=== PATIENT | female | born 1950 | race Caucasian/White ===

== ENCOUNTER 2017-01-04 11:03 | Day surgery (SDC) | payer MEDICARE, OTHER ==
[~2017-01-04 11:03] MED LIST: ACETAMINOPHEN WITH CODEINE 1 EACH TABLET PO PRN; KETOROLAC TROMETHAMINE 15 MG/ML VIAL IV PRN; MORPHINE SULFATE 2 MG/ML DISP.SYRIN IV PRN; ONDANSETRON HCL/PF 2 MG/ML VIAL IV PRN; OXYBUTYNIN CHLORIDE 5 MG TABLET PO PRN; RINGERS SOLUTION,LACTATED 1,000 ML IV PRN; ceFAZolin SODIUM 2 GM in DEXTROSE 5 % IN WATER 50 ML IV PRN; oxyCODONE HCL/ACETAMINOPHEN 1 TAB TABLET PO PRN
--- OUTSIDE RECORDS SUMMARY | 2017-01-04 11:07 | XMS REPORT | Continuity of Care Document ---
:1950 Author Organization [facility] ([facility]) Address [address] [place] [address] Phone [phone] Care Team Providers Name Role Phone Radha Taylor Primary Care Provider [phone] Source Comments This disclosure is being made pursuant to the Care Everywhere program, applicable federal and state laws, and may not contain all informaitonavailable regarding this patient.[facility] ([facility]) Active Allergies and Adverse Reactions Allergen Noted Date Severity Reactions Comments Amoxicillin Urticaria (Hives),OTHER colitis Ampicillin Urticaria (Hives),OTHER colitis Current Medications Prescription Sig. Disp. Refills Start Date End Date Status acetaminophen (TYLENOL take 500 mg by Active EXTRA STRENGTH) 500 mg mouth as needed tablet for Pain. aspirin 81 mg EC tablet take 81 mg by Active mouth daily. HYPROMELLOSE/PF (GENTEAL, Instill 1 Drop Active PF, OPHTH) onto the eye as needed. ibuprofen 200 mg tablet Take 200 mg by Active mouth as needed. ASCORBATE CALCIUM (VITAMIN Take by mouth. Active C PO) CYANOCOBALAMIN, VITAMIN Take by mouth Active B-12, (VITAMIN B-12 PO) daily. albuterol 2.5 mg/3 mL 0 12/13/2015 Active inhalation solution VENTOLIN HFA 90 0 12/10/2015 Active mcg/Actuation inhaler fluticasone 50 0 12/13/2015 Active mcg/Actuation nasal spray vitamin E PO Active timolol (BETIMOL) 0.25 % Instill 1 Drop 15 mL 11 08/20/2016 Active ophthalmic solution onto the left eye daily. prednisoLONE acetate 1 % Instill 1 Drop 10 mL 11 09/17/2016 Active ophthalmic suspension onto the left eye 3 times daily. cholecalciferol (VITAMIN Take 1,000 Units Active D3) 1,000 unit capsule by mouth daily. 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 01/30/07;s/p DMAEK 06/05/12 Pseudophakia 07/13/2009 Subluxation of lens 01/14/2008 Personal history of other diseases of circulatory system 08/27/2007 Malignant neoplasm of breast (female), unspecified site 05/21/2006 Resolved Problems Problem Noted Date Resolved Date Corneal transplant 07/13/2009 10/03/2015 Most Recent Encounters Date Type Specialty Providers Description 12/07/2016 Office Visit Med Hematology and Sang Petty MD Chief Comp: Patient Oncology Reported Reason For Visit 11/13/2016 Office Visit Dermatology CrisChino patel MD Chief Comp: Patient Reported Reason For Visit 11/13/2016 Office Visit Ophthalmology - Sang Morales, Dx: Secondary Specialty MD corneal edema, left (Primary Dx) Social History Tobacco Use Types Packs/Day Years Used Date Never Smoker Smokeless Tobacco: Never Used Tobacco Cessation:Counseling Given: Yes Comments: Alcohol Use Drinks/Week oz/Week Comments No Last Filed Vital Signs Vital Sign Reading Time Taken Blood Pressure 115/70 06/06/2016 6:15 PM CDT Pulse 93 06/06/2016 10:45 AM CDT Temperature 36.4 C (97.5 F) 06/06/2016 5:00 PM CDT Respiratory Rate 16 06/06/2016 5:00 PM CDT Height 1.626 m (5' 4") 04/19/2016 11:11 AM CDT Weight 78.4 kg (172 lb 13.5 oz) 06/06/2016 10:45 AM CDT Body Mass Index 29.65 06/06/2016 10:45 AM CDT Oxygen Saturation 96% 06/06/2016 6:15 PM CDT Plan of Care Date Type Specialty Providers Description 01/15/2017 Appointment Ophthalmology - Sang Morales MD Chief Comp: Patient Specialty [address] [place] [address] Visit [phone] (Fax) 01/15/2017 Appointment Radiology Chief Comp: Patient Reported Reason For Visit 01/15/2017 Appointment Med Hematology and Jovanny, Sang Mcdonough MD Chief Comp: Patient Oncology [address] [place] [address] Visit [phone] (Fax) Health Maintenance Due Date Last Done Comments HCV Screening 1950 Hepatitis B Vaccine (1 of 3 1950 - Primary Series) Tdap Vaccine 1959 Td Vaccine 1966 Colonoscopy 1998 Zoster Vaccine 2008 Osteoporosis Screening (DXA 2013 Bone Density) Pneumococcal Vaccine (1 of 2 2013 - PCV13) Influenza Vaccine: Seasonal 05/07/2016 (#1) Lipid Disorder Screening 11/06/2016 11/06/2011 Mammogram 12/06/2016 12/07/2015, Additional history exists 11/25/2015, 11/19/2014 Results from Last 3 Months Not on file
[2017-01-04] MEDS ORDERED: NORMAL SALINE 1,000 ML IV ONE (11:53)
[2017-01-04 15:14] VITALS: BP 137/63
== END 2017-01-04 11:04 | disposition home or self-care (01) ==
LOC: AMB 11:03
PROVIDERS: ATTEND Urology
PROC: 0T778DZ Dilation of Left Ureter with Intraluminal Device, Via Natural or Artificial Opening Endoscopic (ICD-10-PCS; 2017-01-04)
PROC: 0TF48ZZ Fragmentation in Left Kidney Pelvis, Via Natural or Artificial Opening Endoscopic (ICD-10-PCS; principal; 2017-01-04 12:00)
DX: N20.0 Calculus of kidney (principal); R31.29 Other microscopic hematuria; Z68.29 Body mass index [BMI] 29.0-29.9, adult

== ENCOUNTER 2017-01-11 11:53 | Day surgery (SDC) | payer MEDICARE, OTHER ==
[~2017-01-11 11:53] MED LIST changes: -ACETAMINOPHEN WITH CODEINE 1 EACH TABLET PO PRN; +CIPROFLOXACIN HCL 500 MG TABLET PO PRN; -KETOROLAC TROMETHAMINE 15 MG/ML VIAL IV PRN; -MORPHINE SULFATE 2 MG/ML DISP.SYRIN IV PRN; -ONDANSETRON HCL/PF 2 MG/ML VIAL IV PRN; -OXYBUTYNIN CHLORIDE 5 MG TABLET PO PRN; -RINGERS SOLUTION,LACTATED 1,000 ML IV PRN; -ceFAZolin SODIUM 2 GM in DEXTROSE 5 % IN WATER 50 ML IV PRN; -oxyCODONE HCL/ACETAMINOPHEN 1 TAB TABLET PO PRN
--- OUTSIDE RECORDS SUMMARY | 2017-01-11 11:57 | XMS REPORT | Continuity of Care Document ---
:1950 Author Organization [facility] ([facility]) Address [address] [place] [address] Phone [phone] Care Team Providers Name Role Phone Radha Taylor Primary Care Provider [phone] Source Comments This disclosure is being made pursuant to the Care Everywhere program, applicable federal and state laws, and may not contain all informaitonavailable regarding this patient.[facility] ([facility]) Active Allergies and Adverse Reactions Allergen Noted [...] Specialty [address] [place] [address] Visit [phone] (Fax) 01/15/2017 Appointment Radiology Chief Comp: Patient Reported Reason For Visit 01/15/2017 Appointment Med Hematology and Jovanny, Sang Mcdonough MD Chief Comp: Patient Oncology [address] [place] [address] Visit [phone] (Fax) Health Maintenance Due Date Last Done Comments HCV Screening 1950 Hepatitis B Vaccine (1 of 3 1950 - Primary Series) Tdap Vaccine 1959 Td Vaccine 1966 Colonoscopy 1998 Zoster Vaccine 2008 Osteoporosis Screening (DXA 2013 Bone Density) Pneumococcal Vaccine (1 of 2 2013 - PCV13) Lipid Disorder Screening 11/06/2016 11/06/2011 Mammogram 12/06/2016 12/07/2015, Additional history exists 11/25/2015, 11/19/2014 Influenza Vaccine: Seasonal Completed Results from Last 3 Months Not on file
[2017-01-11] MEDS ORDERED: LIDOCAINE HCL 10 APPL CARTRIDGE TP ONE (12:35)
--- NOTE | 2017-01-11 12:53 | OR ---
Operative Report - Dictated Report Narrative: Procedure: cystoscopy and left stent removal Preoperative Dx: left kidney stones Post op Dx: Same Anesthesia: local Blood loss: none Indications: Hx of medullary sponge kidney. Treated 1 week ago with left URS, laser and stenting for lower pole stones Description of procedure: brought to the OR and positioned in frog leg. Timeout performed. Prepped and draped. Lidocaine jelly inserted. Flexible scoped passed easily. Stent seen grasped and removed without difficulty. Follow up in 6 months with a KUB
[2017-01-11 13:30] VITALS: BP 132/71
== END 2017-01-11 11:54 | disposition home or self-care (01) ==
LOC: AMB 11:53
PROVIDERS: ATTEND Urology
PROC: 0TP98DZ Removal of Intraluminal Device from Ureter, Via Natural or Artificial Opening Endoscopic (ICD-10-PCS; principal; 2017-01-11 13:00)
DX: N20.0 Calculus of kidney (principal); Z68.29 Body mass index [BMI] 29.0-29.9, adult

== ENCOUNTER 2017-01-22 11:49 | Inpatient (IN) | payer MEDICARE, OTHER ==
--- OUTSIDE RECORDS SUMMARY | 2017-01-22 11:54 | XMS REPORT | Continuity of Care Document ---
:1950 Author Organization [facility] ([facility]) Address [address] [place] [address] Phone [phone] Care Team Providers Name Role Phone Radha Taylor Primary Care Provider [phone] Source Comments This disclosure is being made pursuant to the Care Everywhere program, applicable federal and state laws, and may not contain all informaitonavailable regarding this patient.[facility] ([facility]) Active Allergies and Adverse Reactions Allergen [...] Recent Encounters Date Type Specialty Providers Description 01/15/2017 Office Visit Med Hematology Sang Bullock, Dx: Malignant Oncology neoplasm of breast (female), unspecified site (Primary Dx) 01/15/2017 [facility] Radiology Srinivas Haynes MD Dx: Encounter for Encounter screening mammogram for malignant neoplasm of breast 01/15/2017 Office Visit Ophthalmology - Sang Morales, Dx: Secondary Specialty corneal edema, left (Primary Dx) 12/07/2016 Office Visit Med Hematology and Sang Petty, Chief Comp: Patient Oncology MD Reported Reason For Visit 11/13/2016 Office Visit Dermatology Chino Lynch MD Chief Comp: Patient Reported Reason For Visit 11/13/2016 Office Visit Ophthalmology - Sang Morales Dx: Secondary Specialty corneal edema, left (Primary Dx) Social History Tobacco Use Types Packs/Day Years Used Date Never Smoker Smokeless Tobacco: Never Used Tobacco Cessation:Counseling Given: Yes Comments: Alcohol Use Drinks/Week oz/Week Comments No Last Filed Vital Signs Vital Sign Reading Time Taken Blood Pressure 134/67 01/15/2017 2:27 PM CDT Pulse 68 01/15/2017 2:27 PM CDT Temperature 36.2 C (97.2 F) 01/15/2017 2:27 PM CDT Respiratory Rate 18 01/15/2017 2:27 PM CDT Height 1.626 m (5' 4.02") 01/15/2017 2:27 PM CDT Weight 80.5 kg (177 lb 7.5 oz) 01/15/2017 2:27 PM CDT Body Mass Index 30.45 01/15/2017 2:27 PM CDT Oxygen Saturation 98% 01/15/2017 2:27 PM CDT Plan of Care Date Type Specialty Providers Description 01/21/2018 Appointment Ophthalmology - Sang Morales MD Chief Comp: Patient Specialty [address] [place] [address] Visit [phone] (Fax) Health Maintenance Due Date Last Done Comments HCV Screening 1950 Hepatitis B Vaccine (1 of 3 1950 - Primary Series) Tdap Vaccine 1959 Td Vaccine 1966 Colonoscopy 1998 Zoster Vaccine 2008 Osteoporosis Screening (DXA 2013 Bone Density) Pneumococcal Vaccine (1 of 2 2013 - PCV13) Lipid Disorder Screening 11/06/2016 11/06/2011 Influenza Vaccine: Seasonal 05/07/2017 (Season Ended) Mammogram 01/15/2018 01/15/2017, Additional history exists 12/07/2015, 11/25/2015 Results from Last 3 Months BI DIGITAL SCREENING MAMMOGRAM BILATERAL& JASMYNE (01/15/2017 1:50 PM) Impressions Impression: Benign findings in the left breast. Recommendations:Continue annual screening mammogram. These results were provided to the patient by letter. Final Assessment: Benign finding. BIRADS category 2. Narrative Procedure: BI DIGITAL SCREENING MAMMOGRAM BILATERAL & JASMYNE Technique:Digital mammogram with Tomosynthesis, bilateral CC and MLO views. Clinical Indication:Breast cancer screening Personal History of breast cancer: Yes, left breast status post lumpectomy and radiation therapy Personal Delivery History: Prior to age 28 Personal History of biopsy proven benign breast disease: No Personal history of reduction mammoplasty: No Family History of breast cancer: No Date of Comparison Study: 11/25/2015, 11/19/2014, 11/17/2013, 11/11/2012, 11/06/2011, 10/25/2010, 10/11/2009, 08/31/2008, 08/27/2007 Parenchymal Radiodensity: The breasts are heterogeneously dense, which may obscure small masses. Findings: Stable postsurgical change in the left upper outer breast. Otherwise, there is no suspicious mass, microcalcifications or architectural distortion in the either breast.. Comparison to prior exams demonstrates no significant interval change. Procedure Note Inderjit, Incoming Imaging Results - Tue Jan 15, 2017 3:07 PM CDT Procedure: BI DIGITAL SCREENING MAMMOGRAM BILATERAL & JASMYNE Technique: Digital mammogram with Tomosynthesis, bilateral CC and MLO views. Clinical Indication: Breast cancer screening Personal History of breast cancer: Yes, left breast status post lumpectomy and radiation therapy Personal Delivery History: Prior to age 28 Personal History of biopsy proven benign breast disease: No Personal history of reduction mammoplasty: No Family History of breast cancer: No Date of Comparison Study: 11/25/2015, 11/19/2014, 11/17/2013, 11/11/2012, 11/06/2011, 10/25/2010, 10/11/2009, 08/31/2008, 08/27/2007 Parenchymal Radiodensity: The breasts are heterogeneously dense, which may obscure small masses. Findings: Stable postsurgical change in the left upper outer breast. Otherwise, there is no suspicious mass, microcalcifications or architectural distortion in the either breast. . Comparison to prior exams demonstrates no significant interval change. IMPRESSION Impression: Benign findings in the left breast. Recommendations: Continue annual screening mammogram. These results were provided to the patient by letter. Final Assessment: Benign finding. BIRADS category 2.
--- OUTSIDE RECORDS SUMMARY | 2017-01-22 15:40 | XMS REPORT | Continuity of Care Document ---
:1950 Author Organization [facility] ([facility]) Address [address] [place] [address] Phone [phone] Care Team Providers Name Role Phone Radha Taylor Primary Care Provider [phone] Source Comments This disclosure is being made pursuant to the Care Everywhere program, applicable federal and state laws, and may not contain all informaitonavailable regarding this patient.[facility] ([facility]) Active Allergies and Adverse Reactions Allergen Noted [...] breast (female), unspecified site (Primary Dx) 01/15/2017 [facility] Radiology Srinivas Haynes MD Dx: Encounter for [...] Specialty Providers Description 01/21/2018 Appointment Ophthalmology - aSng Morales MD Chief Comp: Patient Specialty [address] [place] [address] Visit [phone] (Fax) Health Maintenance Due Date Last Done [...]
[2017-01-22] MEDS ORDERED: NORMAL SALINE 1,000 ML IV ONE (15:45)
[2017-01-22] MEDS ORDERED: ALBUTEROL SULFATE/IPRATROPIUM 3 ML NEBU IH ONE (18:05)
[2017-01-22] MEDS: NORMAL SALINE 1,000 ML IV PRN ×2 (18:08→23:33)
[2017-01-22 18:28] LABS: BNP * 621 pg/mL (5-325); Troponin I Less than 0.017 ng/ml (0.00-0.10)
[2017-01-22] MEDS ORDERED: ACETAMINOPHEN 325 MG TABLET PO ONE (18:40)
[2017-01-22] MEDS ORDERED: ACETAMINOPHEN 325 MG TABLET ONE (18:41)
--- NOTE | 2017-01-22 19:11 | HP ---
Chief Complaint - Chief Complaint Date of Service: 01/22/17 Time of Service: 17:15 Chief Complaint: UTI, shortness of breath, back pain History of Present Illness: Mary is a 66 year old female with a PMH of anemia, breast ca (left breast s/ p lumpectomy), ulcerative colitis, and history of PE in [address] Rey's office today with 1-2 day history of dyspnea, low grade fever, nausea and poor oral intake. Chest xray done outpatient was WNL. CT of the chest done outpatient was negative for PE. labs done outpatient showed wbc 11.4 , bmp wnl, ast/alt wnl. neutrophils elevated 80.6. pt was directly admitted to the hospital for UTI, fever, dyspnea and cough. Patient also has a recent history of kidney stone lithotripsy with stent placement and removal on 01/04/[address] belcher was notified of pt's admission and agreed to admission. - Patient's Past Medical History Patient History - Medical: Anemia, Kidney stone Patient History - Cardiac/Respiratory: No pertinent hx Patient History - Cancer: Breast Patient History - Surgical Procedures: Cataracts, Cholecystectomy, Colonoscopy, Hysterectomy, Other Patient History - Other: None LMP (females 10-50): Menopausal - Family History Father Family History - Medical: , Diabetes Type 2 Family History - Cardiac/Respiratory: No pertinent hx Family History - Cancer: No pertinent family hx - Social History Living Situations: spouse Abuse History: No History of abuse Psych History: No pertinent hx Smoking Status: Never smoker Have you smoked in the past 12 months: Yes Do you dip or chew tobacco: Yes Patient requests Smoking Cessation Consult: No Initiate information on Smoking Cessation: No Alcohol Use: none Drug Use: none - Immunizations Immunizations Up to Date: Yes Hx Pneumococcal Vaccination: No History of Influenza Vaccine: Yes Review Of Systems (GEN) - Review of Systems Generalized/Overall Review: Present: Weakness, Fever, Malaise, Fatigue EENTM: Present: No Symptoms Reported Respiratory: Present: Cough, Shortness of Breath. Absent: Wheezing Cardiac: Present: No Symptoms Reported Abdominal: Present: Nausea, Other - abdominal bloating / guarding. Absent: Vomiting, Hematemesis, Constipation, Diarrhea, Melena, Bright blood from rectum Genitourinary: Present: Frequency Musculoskeletal: Present: Back Pain Neurological: Present: Weakness Skin: Present: No Symptoms Reported Endocrine: Present: No Symptoms Reported Misc: All systems neg except as marked Immunizations: IMMUNIZATION HX Immunizations Up to Date Yes History of Influenza Vaccine Yes Hx Pneumococcal Vaccination No Allergies/Adverse Reactions: Allergies Allergy/AdvReac Type Severity Reaction Status Date / Time ampicillin Allergy Severe diarrhea, Verified 01/22/17 17:16 rash, hives amoxicillin Allergy Unknown diarrhea, Verified 01/22/17 17:16 rash, hives Home Medications: HOME MEDICATIONS Timolol Maleate [Timoptic Generic 0.25% Ophthalmic Solution] 1 drop OP DAILY [Last Taken Unknown] prednisoLONE ACETATE [Pred Forte 1%] 1 drop LEFTEYE BID 01/03/17 [Last Taken Unknown] Aspirin [Aspirin EC] 81 mg PO DAILY 01/04/17 [Last Taken Unknown] HYDROcodone/ACETAMINOPHEN [Chisholm 5-325] 1 - 2 tab PO Q4H PRN #20 tab 01/04/17 [ Last Taken Unknown] Ascorbic Acid [Vitamin C] 500 mg PO DAILY 01/22/17 [Last Taken Unknown] Cholecalciferol (Vitamin D3) [Vitamin D] 2,000 unit PO DAILY 01/22/17 [Last Taken Unknown] Cyanocobalamin (Vitamin B-12) [Vitamin B-12] 500 mcg PO DAILY 01/22/17 [Last Taken Unknown] Ibuprofen [Motrin] 200 - 800 mg PO Q6H PRN 01/22/17 [Last Taken Unknown] Vitamin E 200 unit PO DAILY 01/22/17 [Last Taken Unknown] Exam - Exam Vital Signs: Vital Signs - Last Taken Temp 37.4 C 01/22/17 16:59 Pulse 134 H 01/22/17 16:59 Resp 20 01/22/17 16:59 BP 135/69 01/22/17 18:16 Pulse Ox 99 01/22/17 16:59 Constitutional: Present: Alert, Oriented x3, Cooperative, Moderate distress, Severe distress, Looks Older than stated age ENT Exam: Present: hearing grossly normal Eye Exam: bilateral eye: normal inspection, PERRL Neck: Present: full range of motion, supple Back Exam: Present: normal inspection, no vertebral tenderness Breasts: Present: Exam deferred Respiratory: Present: chest non-tender, respiratory distress, accessory muscle use, crackles, rhonchi Cardiovascular/Chest: Present: normal peripheral pulses, regular rate, rhythm, no chest tenderness, no edema, tachycardia Peripheral Pulses: carotid (R): 2+, carotid (L): 2+, dorsalis-pedis (R): 2+, dorsalis-pedis (L): 2+, radial (R): 2+, radial (L): 2+ Abdomen: Present: Normal bowel sounds, guarding, rigidity, distended - mild /Rectal: Present: Exam deferred Extremity: Present: normal range of motion, non-tender, normal inspection, no pedal edema, no calf tenderness Skin Exam: Present: normal color, warm/dry, no cyanosis Neurologic: Present: alert, oriented x 3 Diagnostic Studies: Abnormal Lab Results 01/22/17 01/22/17 Range/Units 18:06 18:06 pCO2 27.1 L (32.0-45.0) mmHg pO2 72.7 L (83.0-108.0) mmHg HCO3 20.8 L (21.0-28.0) mmol/L ABG pH 7.50 H (7.35-7.45) B-Natriuretic Peptide 621 H (5-325) pg/mL Laboratory Results pCO2 27.1 mmHg (32.0-45.0) L 01/22/17 18:06 pO2 72.7 mmHg (83.0-108.0) L 01/22/17 18:06 HCO3 20.8 mmol/L (21.0-28.0) L 01/22/17 18:06 Total CO2 21.6 mmol/L (19.0-24.0) 01/22/17 18:06 Base Excess -1.2 mmol/L (-2.0-3.0) 01/22/17 18:06 ABG pH 7.50 (7.35-7.45) H 01/22/17 18:06 ABG O2 Sat (Measured) 96.1 % (94.0-98.0) 01/22/17 18:06 Lactic Acid, Venous 1.9 mmol/L (0.4-1.9) 01/22/17 16:15 Troponin I Less than 0.017 ng/ml (0.00-0.10) 01/22/17 18:06 B-Natriuretic Peptide 621 pg/mL (5-325) H 01/22/17 18:06 Assessment/Plan - Narrative Narrative: Plan: dehydration - patient to be given 1 liter NS bolus then start IV fluids at 250 ml per hour. - strict I&O and daily weights. - encourage PO intake when able. cough - unclear etiology. chest xray done today wnl. ? chronic in nature vs viral respiratory infection vs post nasal drip vs other etiology. - watch O2 sats closely dyspnea - unclear etiology. chest xray wnl. ct of the chest neg for pe. - check labs for sepsis - ? anxiety playing a factor history of PE - CT done today neg for PE, monitor. history of kidney stone - recent urology procedure. - Dr. Belcher (urology) aware of admission. - check ct for stone protocol. if unable to do tonight will need US of KUB. back pain - likely from UTI and/or kidney stone - awaiting CT stone protocol and/or US of KUB - ? constipation adding to back pain as patient has been without BM for a few days. abdominal guarding - ? cause. pt says she feels more "bloated" and "distended" than usual. - add US of abdomen if unable to do CT of abdomen tonight. - ? constipation adding a variable to this Code Status: Full Code VTE: Hold for now until US back, SCDs on while in bed for now. GI proph: will start on protonix. - Assessment/Plan (1) Dehydration Problem: Acute (2) Cough Problem: Acute (3) Dyspnea Problem: Acute Qualifiers: Dyspnea type: shortness of breath Qualified Code(s): R06.02 - Shortness of breath (4) History of pulmonary edema Problem: Chronic (5) History of kidney stones Problem: Chronic (6) Back pain Problem: Acute Qualifiers: Back pain location: back pain in unspecified location Chronicity: acute Back pain laterality: unspecified Qualified Code(s): M54.9 - Dorsalgia, unspecified (7) Respiratory distress Problem: Acute (8) Urinary tract infection Problem: Acute Qualifiers: Urinary tract infection type: site unspecified Hematuria presence: with hematuria Qualified Code(s): N39.0 - Urinary tract infection, site not specified; R31.9 - Hematuria, unspecified (9) Abdominal guarding Problem: Acute
[2017-01-22 19:16] LABS: Amylase * 33 U/L (25-115); Lipase 129 U/L (73-393)
[2017-01-22] MEDS: prednisoLONE ACETATE 50 DROP BTL LEFTEYE SCH (20:22)
[2017-01-22] MEDS: PANTOPRAZOLE SODIUM 40 MG in NORMAL SALINE 100 ML IV SCH (20:22)
[2017-01-22] MEDS ORDERED: LEVALBUTEROL HCL 1.25 MG/3 ML AMPUL IH SCH (20:45)
[2017-01-22] MEDS ORDERED: LORazepam 0.5 MG TABLET PO PRN (21:51)
[2017-01-22] MEDS: ONDANSETRON HCL/PF 2 MG/ML VIAL IV PRN (22:20)
[2017-01-22] MEDS: LEVOFLOXACIN/D5W 750 MG/150 ML BAG IV SCH (22:22)
[2017-01-22 22:35] LABS: Hematocrit 33.5 % (37.0-47.0); Hemoglobin 11.5 gm/dL (12.5-16.0); Mean Cell Volume 92.8 fl (78-100); Mean Corpuscular Hemoglobin 31.9 pg (27-31); Mean Corpuscular Hgb Conc 34.3 g/dl (32-36); Mean Platelet Volume 8.7 fl (6.0-9.5); Neutrophil # 9.7 K/mm3 (1.3-6.0); Neutrophil % 85.5 % (42-75.0); Platelet Count 184 K/mm3 (150-450); Red Blood Count 3.61 M/mm3 (4.2-5.4); Red Cell Distribution Width 12.9 % (11.5-14.0); White Blood Count 11.4 K/mm3 (4.0-10.5)
[2017-01-22 22:44] LABS: Anion Gap 14.9 mmol/L (6.8-13.8); BUN/Creatinine Ratio 10.1 (9.0-21.6); Calcium * 8.2 mg/dL (7.9-10.9); Carbon Dioxide 24.4 mmol/L (24-32.6); Estimated Creat Clear 52.2; Potassium 3.3 mmol/L (3.4-4.6)
[2017-01-22] MEDS: ACETAMINOPHEN 325 MG TABLET PO PRN (23:06)
[2017-01-23] MEDS: NORMAL SALINE 1,000 ML IV PRN ×5 (04:19→22:55)
[2017-01-23 05:51] LABS: Hematocrit 33.8 % (37.0-47.0); Hemoglobin 11.1 gm/dL (12.5-16.0); Mean Cell Volume 95.5 fl (78-100); Mean Corpuscular Hemoglobin 31.4 pg (27-31); Mean Corpuscular Hgb Conc 32.8 g/dl (32-36); Platelet Count 192 K/mm3 (150-450); Red Blood Count 3.54 M/mm3 (4.2-5.4); White Blood Count 15.7 K/mm3 (4.0-10.5)
[2017-01-23] MEDS: ACETAMINOPHEN 325 MG TABLET PO PRN ×2 (05:54→20:32)
[2017-01-23] MEDS: ONDANSETRON HCL/PF 2 MG/ML VIAL IV PRN (05:54)
[2017-01-23 06:05] LABS: Total Cells Counted 100
[2017-01-23 06:08] LABS: Albumin * 2.8 gm/dl (3.4-5.0); Anion Gap 13.2 mmol/L (6.8-13.8); BUN/Creatinine Ratio 9.7 (9.0-21.6); Bilirubin, Total 0.5 mg/dL (0.0-1.1); Ca. Corrected For Albumin 8.7 mg/dL (8.4-10.2); Calcium * 8.1 mg/dL (7.9-10.9); Carbon Dioxide 25.3 mmol/L (24-32.6); Potassium 3.5 mmol/L (3.4-4.6); Total Protein 6.7 gm/dL (6.2-8.2)
[2017-01-23 06:23] LABS: Band 15 % (0-2.0); Lymphocyte 9 % (20-51); Monocyte 3 % (0-9); Neutrophil 73 % (42-75); Neutrophil # 11.5 K/mm3 (1.3-6.0); Platelet Estimate Normal (NORMAL); RBC Morphology Normal (NORMAL)
[2017-01-23] MEDS ORDERED: CYANOCOBALAMIN 500 MCG PO SCH (09:00)
[2017-01-23] MEDS ORDERED: CHOLECALCIFEROL 2000 UNIT PO SCH (09:00)
[2017-01-23] MEDS ORDERED: VITAMIN E 200 UNIT PO SCH (09:00)
[2017-01-23] MEDS: ASCORBIC ACID 500 MG TABLET PO SCH (09:53)
[2017-01-23] MEDS: prednisoLONE ACETATE 50 DROP BTL LEFTEYE SCH ×2 (09:53→20:34)
[2017-01-23] MEDS: TIMOLOL MALEATE 50 DROP BTL OP SCH (10:09)
[2017-01-23] MEDS: PANTOPRAZOLE SODIUM 40 MG in NORMAL SALINE 100 ML IV SCH (20:35)
[2017-01-23] MEDS ORDERED: VANCOMYCIN HCL IV SCH ×2 (22:00)
[2017-01-23] MEDS ORDERED: DEXTROSE 5% IV SCH ×2 (22:00)
[2017-01-23] MEDS ORDERED: WATER IV SCH ×2 (22:00)
[2017-01-23] MEDS: LEVOFLOXACIN/D5W 750 MG/150 ML BAG IV SCH (22:54)
[2017-01-24] MEDS: VANCOMYCIN HCL 1 GM in NORMAL SALINE 250 ML IV SCH ×3 (01:23→23:38)
[2017-01-24] MEDS: NORMAL SALINE 1,000 ML IV PRN ×2 (06:56→15:10)
[2017-01-24] MEDS: prednisoLONE ACETATE 50 DROP BTL LEFTEYE SCH ×2 (08:22→20:47)
[2017-01-24] MEDS: ASCORBIC ACID 500 MG TABLET PO SCH (08:23)
[2017-01-24] MEDS: TIMOLOL MALEATE 50 DROP BTL OP SCH (08:37)
[2017-01-24 09:09] LABS: Hematocrit 28.3 % (37.0-47.0); Hemoglobin 9.4 gm/dL (12.5-16.0); Mean Cell Volume 95.6 fl (78-100); Mean Corpuscular Hemoglobin 31.8 pg (27-31); Mean Corpuscular Hgb Conc 33.2 g/dl (32-36); Mean Platelet Volume 8.7 fl (6.0-9.5); Platelet Count 149 K/mm3 (150-450); Red Blood Count 2.96 M/mm3 (4.2-5.4); Red Cell Distribution Width 13.1 % (11.5-14.0); White Blood Count 11.4 K/mm3 (4.0-10.5)
[2017-01-24 09:20] LABS: Total Cells Counted 100
[2017-01-24] MEDS: ENOXAPARIN SODIUM 40 MG/0.4 ML SYRG SC SCH (09:21)
[2017-01-24 09:35] LABS: Eosinophil 1 % (0-3); Lymphocyte 7 % (20-51); Monocyte 4 % (0-9); Neutrophil 88 % (42-75); Platelet Estimate Normal (NORMAL); RBC Morphology Normal (NORMAL)
[2017-01-24] MEDS ORDERED: POTASSIUM CHLORIDE 20 MEQ TABLET.SA PO ONE (12:00)
[2017-01-24] MEDS: SACCHAROMYCES BOULARDII 250 MG CAPSULE PO SCH ×2 (12:16→20:45)
[2017-01-24 15:19] LABS: Iron 14 mcg/dL (35-120); Transferrin Sat. (% Sat.) 8 % (15-55)
[2017-01-24] MEDS ORDERED: diphenhydrAMINE HCL 50 MG/ML VIAL IV ONE (16:18)
[2017-01-24] MEDS ORDERED: IRON SUCROSE COMPLEX 500 MG in NORMAL SALINE 250 ML IV ONE (16:30)
--- NOTE | 2017-01-24 17:38 | PN ---
Subjective - Date and Time Seen Date: 01/24/17 Time: 17:31 Subjective Narrative: Patient feels better; continues to have occasional problems "catching her breath '. This leaves her very concerned. She and her want this to be worked up. No difficulty in swallowing, hoarseness etc. This also occurred when she had her PE. Back pain improving. Discussed CT findings with patient Objective - Review of Systems Generalized/Overall Review: Denies: Weakness, Chills Respiratory: Denies: Cough Cardiac: Denies: Chest Pain, Edema Abdominal: Denies: Nausea, Vomiting Musculoskeletal Complaints: Reports: Back Pain - Vitals Vitals: Vital Signs Temp 37.5 C 01/24/17 14:20 Pulse 107 H 01/24/17 14:20 Resp 18 01/24/17 14:20 BP 142/79 01/24/17 14:20 Pulse Ox 98 01/24/17 14:20 - Abnormal Lab Findings Abnormal Lab Findings: Laboratory Tests 01/24/17 09:03 WBC 11.4 H D Hgb 9.4 L Hct 28.3 L Plt Count 149 L 01/24/17 09:03 Iron 14 L TIBC 178 L Transferrin % Sat 8 L Folate 18.4 - Exam Constitutional: Present: Middle aged - looks her age, in no acute distress. ENT Exam: Present: hearing grossly normal, moist mucous membranes Respiratory: Present: lungs clear, no respiratory distress, no accessory muscle use Cardiovascular/Chest: Present: regular rate, rhythm, tachycardia - with HR 100- 110/min Abdomen: Present: Normal bowel sounds, soft, nontender, nondistended Extremity: Present: normal range of motion, normal inspection. Absent: no pedal edema Neurologic: Present: alert, oriented x 3. Absent: depressed affect Assessment/Plan Plan Narrative: 1. Bacteremia: 2 out of 2 blood cultures positive for gram positive cocci in pairs. Patient currently on ceftriaxone 2 g IV daily day #3, levofloxacin 750 mg IV daily day # 3 and vancomycin 1 g IV BID day #2. D/C ceftriaxone. CT abdomen/pelvis on 01/23/2017: Left-sided perinephric stranding and focal ill- defined masslike finding on the lower pole of the LT kidney. Differential diagnosis: Focal pyelonephritis versus infiltrative renal mass. 2. Medullary sponge kidney: S/P stent placement due to kidney stones on 01/04/17. 3. Iron deficiency anemia: T sat ratio 8%. CT also showing questionable bowel wall thickening of the sigmoid colon. May require further workup. Venofer 500 mg IV daily given after premedicating with diphenhydramine 25 mg IV. 4. Difficulty in catching her breath/swallowing: Obtain MRI for questionable stroke. 5. CHRONIC MEDICAL CONDITIONS. i. Breast CA s/p lumpectomy. ii. ulcerative colitis.
[2017-01-24] MEDS: PANTOPRAZOLE SODIUM 40 MG in NORMAL SALINE 100 ML IV SCH (19:37)
[2017-01-24] MEDS: LEVOFLOXACIN/D5W 750 MG/150 ML BAG IV SCH (22:11)
[2017-01-24] MEDS: ACETAMINOPHEN 325 MG TABLET PO PRN (22:31)
[2017-01-25] MEDS: NORMAL SALINE 1,000 ML IV PRN (01:47)
[2017-01-25 05:37] LABS: Hematocrit 28.9 % (37.0-47.0); Hemoglobin 9.5 gm/dL (12.5-16.0); Mean Cell Volume 95.1 fl (78-100); Mean Corpuscular Hemoglobin 31.3 pg (27-31); Mean Corpuscular Hgb Conc 32.9 g/dl (32-36); Mean Platelet Volume 9.6 fl (6.0-9.5); Neutrophil # 6.6 K/mm3 (1.3-6.0); Neutrophil % 75.7 % (42-75.0); Platelet Count 181 K/mm3 (150-450); Red Blood Count 3.04 M/mm3 (4.2-5.4); Red Cell Distribution Width 13.1 % (11.5-14.0); White Blood Count 8.7 K/mm3 (4.0-10.5)
[2017-01-25 05:46] LABS: Anion Gap 13.7 mmol/L (6.8-13.8); BUN/Creatinine Ratio 4.4 (9.0-21.6); Calcium * 8.4 mg/dL (7.9-10.9); Carbon Dioxide 26.1 mmol/L (24-32.6); Estimated Creat Clear 68.4; Potassium 2.8 mmol/L (3.4-4.6)
[2017-01-25] MEDS ORDERED: POTASSIUM CHLORIDE 20 MEQ TABLET.SA PO ONE ×2 (06:34→16:00)
[2017-01-25] MEDS ORDERED: 0.5 NORMAL SALINE 1,000 ML IV PRN (06:38)
[2017-01-25] MEDS ORDERED: POTASSIUM CHLORIDE 20 MEQ TABLET.SA ONE (08:28)
[2017-01-25] MEDS: POTASSIUM CHLORIDE 100 ML IV SCH ×4 (08:29→09:45)
[2017-01-25] MEDS ORDERED: POTASSIUM CHLORIDE 20 MEQ in 0.5 NORMAL SALINE 1,000 ML IV SCH (08:45)
[2017-01-25] MEDS: ASCORBIC ACID 500 MG TABLET PO SCH (09:45)
[2017-01-25] MEDS: SACCHAROMYCES BOULARDII 250 MG CAPSULE PO SCH ×2 (09:45→22:06)
[2017-01-25] MEDS: ENOXAPARIN SODIUM 40 MG/0.4 ML SYRG SC SCH (09:46)
[2017-01-25] MEDS: prednisoLONE ACETATE 50 DROP BTL LEFTEYE SCH ×2 (09:46→22:07)
[2017-01-25] MEDS: TIMOLOL MALEATE 50 DROP BTL OP SCH (09:46)
[2017-01-25] MEDS ORDERED: VANCOMYCIN HCL LEVEL XX ONE (10:30)
[2017-01-25] MEDS: VANCOMYCIN HCL 1 GM in NORMAL SALINE 250 ML IV SCH (12:13)
[2017-01-25] MEDS: VANCOMYCIN HCL 1.5 GM in NORMAL SALINE 500 ML IV SCH (12:14)
[2017-01-25] MEDS ORDERED: POTASSIUM CHLORIDE 20 MEQ TABLET.SA PO SCH (17:00)
--- NOTE | 2017-01-25 17:06 | PN ---
Subjective - Date and Time Seen Date: 01/25/17 Time: 16:49 Subjective Narrative: Patient feels better, denies back pain, fever,chills. Off Telemetry. ambulating well. Objective - Review of Systems Respiratory: Denies: Cough, Shortness of Breath Cardiac: Denies: Chest Pain, Edema Abdominal: Denies: Nausea, Vomiting - Vitals Vitals: Vital Signs Temp 37.0 C 01/25/17 14:14 Pulse 107 H 01/25/17 14:14 Resp 18 01/25/17 14:14 BP 140/84 01/25/17 14:14 Pulse Ox 97 01/25/17 14:14 - Abnormal Lab Findings Abnormal Lab Findings: Lab Results - Exam Constitutional: Present: Elderly, Overweight - in NAD ENT Exam: Present: hearing grossly normal, moist mucous membranes Respiratory: Present: lungs clear, normal breath sounds. Absent: respiratory distress Cardiovascular/Chest: Present: regular rate, rhythm, tachycardia Abdomen: Present: Normal bowel sounds, soft, nontender, nondistended Extremity: Present: normal range of motion, non-tender. Absent: no pedal edema Skin Exam: Present: normal color, warm/dry Eye contact: Present: cooperative, good eye contact Assessment/Plan Plan Narrative: 1. Bacteremia: 2 out of 2 blood cultures positive for gram positive cocci in pairs identified today as Staph. aureus. C/S pending. Patient currently levofloxacin 750 mg IV daily day #4 and vancomycin 1 g IV BID day #3. ceftriaxone D/Rei on 01/24/17. CT abdomen/pelvis on 01/23/2017: Left-sided perinephric stranding and focal ill- defined masslike finding on the lower pole of the LT kidney. Differential diagnosis: Focal pyelonephritis versus infiltrative renal mass. 2. Iron deficiency anemia: T sat ratio 8%. CT also showing questionable bowel wall thickening of the sigmoid colon. May require further workup. Venofer 500 mg IV given on 01/24/17 given after premedicating with diphenhydramine 25 mg IV which she tolerated w/o problems. 3. Medullary sponge kidney: S/P stent placement due to kidney stones on 01/04/17. 4. Difficulty in catching her breath/swallowing: MRI for questionable stroke done on negative for pathology. 5. CHRONIC MEDICAL CONDITIONS. i. Breast CA s/p lumpectomy. ii. ulcerative colitis. Discussed with Dr. Alcala regarding RX and CT findings - continue antibiotics for 2 weeks and follow up.
[2017-01-25] MEDS: DEXTROSE 5%-0.5 NORMAL SALINE 1,000 ML IV PRN ×2 (17:14→17:24)
[2017-01-25] MEDS: PANTOPRAZOLE SODIUM 40 MG in NORMAL SALINE 100 ML IV SCH (20:20)
[2017-01-25] MEDS: LEVOFLOXACIN/D5W 750 MG/150 ML BAG IV SCH (22:05)
[2017-01-26] MEDS: VANCOMYCIN HCL 1.5 GM in NORMAL SALINE 500 ML IV SCH ×2 (00:14→11:19)
[2017-01-26 05:28] LABS: Hematocrit 30.3 % (37.0-47.0); Hemoglobin 10.1 gm/dL (12.5-16.0); Mean Cell Volume 93.8 fl (78-100); Mean Corpuscular Hemoglobin 31.3 pg (27-31); Mean Corpuscular Hgb Conc 33.3 g/dl (32-36); Mean Platelet Volume 9.4 fl (6.0-9.5); Neutrophil # 5.1 K/mm3 (1.3-6.0); Neutrophil % 70.1 % (42-75.0); Platelet Count 213 K/mm3 (150-450); Red Blood Count 3.23 M/mm3 (4.2-5.4); White Blood Count 7.2 K/mm3 (4.0-10.5)
[2017-01-26 05:35] LABS: Anion Gap 13.4 mmol/L (6.8-13.8); BUN/Creatinine Ratio 6.2 (9.0-21.6); Carbon Dioxide 26.1 mmol/L (24-32.6); Estimated Creat Clear 71.5; Potassium 3.5 mmol/L (3.4-4.6)
[2017-01-26] MEDS: ASCORBIC ACID 500 MG TABLET PO SCH (08:09)
[2017-01-26] MEDS: SACCHAROMYCES BOULARDII 250 MG CAPSULE PO SCH ×2 (08:09→20:27)
[2017-01-26] MEDS: prednisoLONE ACETATE 50 DROP BTL LEFTEYE SCH ×2 (08:10→20:27)
[2017-01-26] MEDS: TIMOLOL MALEATE 50 DROP BTL OP SCH (08:10)
[2017-01-26] MEDS: ENOXAPARIN SODIUM 40 MG/0.4 ML SYRG SC SCH (08:20)
[2017-01-26] MEDS: DEXTROSE 5%-0.5 NORMAL SALINE 1,000 ML IV PRN (09:15)
--- NOTE | 2017-01-26 18:00 | PN ---
Subjective - Date and Time Seen Date: 01/26/17 Time: 10:48 Subjective Narrative: feeling better. having loose stools. no cp, no dyspnea. no fevers. no chills/ body aches. ambulating well. no back pain. eating and drinking well. only one episode of difficulty with speech yesterday other speech is back to baseline. Objective Objective Narrative: please note: pt had renal stent placed 01/04/17 and removed 01/11/17 - these are updated dates. - Review of Systems Generalized/Overall Review: Reports: Fatigue EENTM: Reports: No Symptoms Reported Respiratory: Reports: No Symptoms Reported Cardiac: Reports: No Symptoms Reported Abdominal: Reports: Diarrhea. Denies: Nausea, Vomiting, Abdominal Pain Genitourinary Symptoms: Reports: No Symptoms Reported Musculoskeletal Complaints: Reports: No Symptoms Reported Neurological: Reports: No Symptoms Reported Skin: Reports: No Symptoms Reported Endocrine: Reports: No Symptoms Reported Misc: All systems neg except as marked - Vitals Vitals: Last Vital Signs Temp 37.1 C 01/26/17 14:58 Pulse 101 H 01/26/17 14:58 Resp 16 01/26/17 14:58 BP 118/72 01/26/17 14:58 Pulse Ox 97 01/26/17 14:58 - Abnormal Lab Findings Abnormal Lab Findings: 01/25/17 01/26/17 05:30 05:30 WBC 8.7 D 7.2 Hgb 9.5 L 10.1 L Hct 28.9 L 30.3 L Plt Count 213 Neutrophils % 75.7 H 70.1 01/26/17 05:30 Sodium 143 H Potassium 3.5 D Carbon Dioxide 26.1 Creatinine 0.65 Est GFR (Non-Af Amer) 96 Random Glucose 123 H 01/24/17 09:03 Iron 14 L TIBC 178 L Transferrin % Sat 8 L 01/25/17 01/25/17 10:35 19:45 Stool Occult Blood Negative Vancomycin Trough 5.9 L - Exam Constitutional: Present: Alert, Oriented x3, Cooperative, No distress ENT Exam: Present: hearing grossly normal Neck: Present: full range of motion, supple Breasts: Present: Exam deferred Respiratory: Present: chest non-tender, lungs clear, normal breath sounds, no respiratory distress Cardiovascular/Chest: Present: normal peripheral pulses, regular rate, rhythm, no chest tenderness Abdomen: Present: Normal bowel sounds, soft, nondistended, tender - mild diffuse tenderness to palpation. /Rectal: Present: Exam deferred Extremity: Present: non-tender, normal inspection, no pedal edema Skin Exam: Present: normal color, warm/dry, no cyanosis Neurologic: Present: alert, oriented x 3 Assessment/Plan Plan Narrative: Bacteremia - both blood cultures positive for staph epi (final results) - sensitivity review and discussed with clinical pharmacist - resistent to levaquin - levaquin discontinued 01/26/17 - keep on vanco iv - pharmacy to dose - Abx: Vancomycin 1.5 gm iv bid - day #4 - levaquin d/c on 01/26/17 - rocephin d/c on 01/24/17 - CT ab/pelvis (01/23/17)- left-sided perinephric stranding and focal ill- defined mass-like finding on the lower pole of the left kidney - diff. dx includes focal pyelonephritis vs infiltrative renal mass Iron deficiency anemia - IV venofer given 01/24/17 (premed with benadryl 25 mg iv) - iron sat 8% - ct ab/pelvis also showed possible bowel wall thickening of the sigmoid colon - may need further work up outpatient. Medullary sponge kidney - s/p stent placed on 01/04/17 - stent removed on 01/10/17 Difficulty swallowing / dyspnea with talking - MRI on 01/25/17 negative for stroke - improving Chronic medical conditions - Breast ca s/p lumpectomy - ulcerative colitis Dr Rey discussed CT results / medications with Dr. Alcala, who recommended cont abx for 2 weeks and then follow up. - Problems/Diagnosis (1) Bacteremia Problem: Acute (2) Medullary sponge kidney Problem: Acute (3) Difficulty swallowing Problem: Acute Qualifiers: Dysphagia type: unspecified Qualified Code(s): R13.10 - Dysphagia, unspecified (4) Iron deficiency anemia Problem: Acute (5) Cough Problem: Acute (6) Dyspnea Problem: Acute Qualifiers: Dyspnea type: shortness of breath Qualified Code(s): R06.02 - Shortness of breath (7) History of pulmonary edema Problem: Chronic (8) History of kidney stones Problem: Chronic (9) Back pain Problem: Acute Qualifiers: Back pain location: back pain in unspecified location Chronicity: acute Back pain laterality: unspecified Qualified Code(s): M54.9 - Dorsalgia, unspecified (10) Urinary tract infection Problem: Ruled-out Qualifiers: Urinary tract infection type: site unspecified Hematuria presence: with hematuria Qualified Code(s): N39.0 - Urinary tract infection, site not specified; R31.9 - Hematuria, unspecified (11) Abdominal guarding Problem: Resolved (12) Dehydration Problem: Resolved (13) Respiratory distress Problem: Resolved
[2017-01-26] MEDS: PANTOPRAZOLE SODIUM 40 MG in NORMAL SALINE 100 ML IV SCH (19:32)
[2017-01-27] MEDS: VANCOMYCIN HCL 1.5 GM in NORMAL SALINE 500 ML IV SCH ×3 (00:45→23:28)
[2017-01-27] MEDS: SACCHAROMYCES BOULARDII 250 MG CAPSULE PO SCH ×2 (08:41→20:11)
[2017-01-27] MEDS: ASCORBIC ACID 500 MG TABLET PO SCH (08:41)
[2017-01-27] MEDS: ENOXAPARIN SODIUM 40 MG/0.4 ML SYRG SC SCH (08:41)
[2017-01-27] MEDS: TIMOLOL MALEATE 50 DROP BTL OP SCH (08:42)
[2017-01-27] MEDS: prednisoLONE ACETATE 50 DROP BTL LEFTEYE SCH ×2 (08:42→20:13)
[2017-01-27] MEDS: FLUTICASONE PROPIONATE 120 SPRAY INHALER NS SCH (10:29)
[2017-01-27] MEDS ORDERED: VANCOMYCIN HCL LEVEL XX ONE (11:30)
[2017-01-27 12:00] LABS: Hematocrit 33.1 % (37.0-47.0); Hemoglobin 11.2 gm/dL (12.5-16.0); Mean Cell Volume 93.2 fl (78-100); Mean Corpuscular Hemoglobin 31.5 pg (27-31); Mean Corpuscular Hgb Conc 33.8 g/dl (32-36); Mean Platelet Volume 8.9 fl (6.0-9.5); Neutrophil # 4.5 K/mm3 (1.3-6.0); Neutrophil % 67.5 % (42-75.0); Platelet Count 259 K/mm3 (150-450); Red Blood Count 3.55 M/mm3 (4.2-5.4); Red Cell Distribution Width 12.9 % (11.5-14.0); White Blood Count 6.7 K/mm3 (4.0-10.5)
[2017-01-27 12:12] LABS: BUN/Creatinine Ratio 11.1 (9.0-21.6); Bilirubin, Total 0.3 mg/dL (0.0-1.1); Ca. Corrected For Albumin 9.6 mg/dL (8.4-10.2); Calcium * 9.1 mg/dL (7.9-10.9); Carbon Dioxide 28.2 mmol/L (24-32.6); Potassium 3.2 mmol/L (3.4-4.6); Total Protein 7.2 gm/dL (6.2-8.2)
--- NOTE | 2017-01-27 16:02 | PN ---
Addendum entered and electronically signed by Alisa Rey MD 02/25/17 18: 40: Patient examined at bedside. Doing well. Labs and progress note reviewed. Will need antibiotics for 2 weeks. Anemia treated with IV Venofer. May require further workup. Agree with plan. Original Note: Subjective - Date and Time Seen Date: 01/27/17 Time: 10:44 Subjective Narrative: doing well. c/o non productive cough, occasional. no cp, no dyspnea. no fever /body aches/chills. ambulating in halls. eating and drinking well. diarrhea resolved. Objective - Review of Systems Generalized/Overall Review: Reports: No Symptoms Reported EENTM: Reports: No Symptoms Reported Respiratory: Reports: Cough. Denies: Shortness of Breath, Wheezing Cardiac: Reports: No Symptoms Reported Abdominal: Reports: No Symptoms Reported Genitourinary Symptoms: Reports: No Symptoms Reported Musculoskeletal Complaints: Reports: No Symptoms Reported Neurological: Reports: No Symptoms Reported Skin: Reports: No Symptoms Reported Endocrine: Reports: No Symptoms Reported Misc: All systems neg except as marked - Vitals Vitals: Last Vital Signs Temp 36.6 C 01/27/17 14:39 Pulse 105 H 01/27/17 14:39 Resp 16 01/27/17 14:39 BP 125/73 01/27/17 14:39 Pulse Ox 95 01/27/17 14:39 - Abnormal Lab Findings Abnormal Lab Findings: Abnormal Lab Results 01/27/17 01/27/17 Range/Units 11:43 11:43 RBC 3.55 L (4.2-5.4) M/mm3 Hgb 11.2 L (12.5-16.0) gm/dL Hct 33.1 L (37.0-47.0) % MCH 31.5 H (27-31) pg Immature Gran % (Auto) 0.90 H (0.001-0.429) % Immature Gran # (Auto) 0.06 H (0.000-0.0310) K/mm3 Lymphocytes # 1.3 L (1.5-3.5) k/mm3 Sodium 143 H (132-142) mmol/L Plasma Sodium 143 H (130-142) mmol/L Potassium 3.2 L (3.4-4.6) mmol/L Albumin 3.0 L (3.4-5.0) gm/dl - Exam Constitutional: Present: Alert, Oriented x3, Cooperative ENT Exam: Present: hearing grossly normal Neck: Present: full range of motion, supple Respiratory: Present: chest non-tender, lungs clear, normal breath sounds Cardiovascular/Chest: Present: normal peripheral pulses, regular rate, rhythm Abdomen: Present: soft, nontender, nondistended /Rectal: Present: Exam deferred Extremity: Present: non-tender, normal inspection Skin Exam: Present: normal color, warm/dry, no cyanosis Assessment/Plan Plan Narrative: Bacteremia - both blood cultures positive for staph epi (final results) - sensitivity reviewed - resistent to levaquin - levaquin discontinued 01/26/17 - keep on vanco iv - pharmacy to dose - Abx: Vancomycin 1.5 gm iv bid - day #5 - levaquin d/c on 01/26/17 - rocephin d/c on 01/24/17 - CT ab/pelvis (01/23/17)- left-sided perinephric stranding and focal ill- defined mass-like finding on the lower pole of the left kidney - diff. dx includes focal pyelonephritis vs infiltrative renal mass Iron deficiency anemia - IV venofer given 01/24/17 (premed with benadryl 25 mg iv) - will need 2nd and final dose of iv venofer 500 mg iv x1 on february 07, 2017 in the annex. - iron sat 8% - ct ab/pelvis also showed possible bowel wall thickening of the sigmoid colon - may need further work up outpatient. Medullary sponge kidney - s/p stent placed on 01/04/17 - stent removed on 01/10/17 Difficulty swallowing / dyspnea with talking - MRI on 01/25/17 negative for stroke - improving Chronic medical conditions - Breast ca s/p lumpectomy - ulcerative colitis Per Dr. Alcala, pt will need 2 weeks IV vanco - will finish in the annex when pt is discharged. - Problems/Diagnosis (1) Bacteremia Problem: Acute (2) Medullary sponge kidney Problem: Acute (3) Difficulty swallowing Problem: Acute Qualifiers: Dysphagia type: unspecified Qualified Code(s): R13.10 - Dysphagia, unspecified (4) Iron deficiency anemia Problem: Acute (5) Cough Problem: Acute (6) Dyspnea Problem: Acute Qualifiers: Dyspnea type: shortness of breath Qualified Code(s): R06.02 - Shortness of breath (7) History of pulmonary edema Problem: Chronic (8) History of kidney stones Problem: Chronic (9) Back pain Problem: Acute Qualifiers: Back pain location: back pain in unspecified location Chronicity: acute Back pain laterality: unspecified Qualified Code(s): M54.9 - Dorsalgia, unspecified (10) Urinary tract infection Problem: Ruled-out Qualifiers: Urinary tract infection type: site unspecified Hematuria presence: with hematuria Qualified Code(s): N39.0 - Urinary tract infection, site not specified; R31.9 - Hematuria, unspecified (11) Abdominal guarding Problem: Resolved (12) Dehydration Problem: Resolved (13) Respiratory distress Problem: Resolved
[2017-01-27] MEDS ORDERED: POTASSIUM CHLORIDE 20 MEQ TABLET.SA PO ONE ×2 (16:08→20:00)
[2017-01-27] MEDS: PANTOPRAZOLE SODIUM 40 MG in NORMAL SALINE 100 ML IV SCH (20:11)
[2017-01-28 06:16] LABS: BUN/Creatinine Ratio 11.3 (9.0-21.6); Calcium * 8.8 mg/dL (7.9-10.9); Potassium 3.6 mmol/L (3.4-4.6)
[2017-01-28 06:20] LABS: Anion Gap 11.4 mmol/L (6.8-13.8); Carbon Dioxide 27.2 mmol/L (24-32.6)
[2017-01-28] MEDS: FLUTICASONE PROPIONATE 120 SPRAY INHALER NS SCH (08:15)
[2017-01-28] MEDS: prednisoLONE ACETATE 50 DROP BTL LEFTEYE SCH (08:16)
[2017-01-28] MEDS: ASCORBIC ACID 500 MG TABLET PO SCH (08:16)
[2017-01-28] MEDS: SACCHAROMYCES BOULARDII 250 MG CAPSULE PO SCH (08:16)
[2017-01-28] MEDS: TIMOLOL MALEATE 50 DROP BTL OP SCH (08:17)
[2017-01-28] MEDS: ENOXAPARIN SODIUM 40 MG/0.4 ML SYRG SC SCH (08:17)
[2017-01-28 10:15] VITALS: BP 145/89
--- NOTE | 2017-01-28 11:18 | DS ---
(1) Bacteremia Problem: Acute (2) Medullary sponge kidney Problem: Acute (3) Difficulty swallowing Problem: Acute Qualifiers: Dysphagia type: unspecified Qualified Code(s): R13.10 - Dysphagia, unspecified (4) Iron deficiency anemia Problem: Acute (5) Cough Problem: Acute (6) Dyspnea Problem: Acute Qualifiers: Dyspnea type: shortness of breath Qualified Code(s): R06.02 - Shortness of breath (7) History of pulmonary edema Problem: Chronic (8) History of kidney stones Problem: Chronic (9) Back pain Problem: Acute Qualifiers: Back pain location: back pain in unspecified location Chronicity: acute Back pain laterality: unspecified Qualified Code(s): M54.9 - Dorsalgia, unspecified (10) Urinary tract infection Problem: Ruled-out Qualifiers: Urinary tract infection type: site unspecified Hematuria presence: with hematuria Qualified Code(s): N39.0 - Urinary tract infection, site not specified; R31.9 - Hematuria, unspecified (11) Abdominal guarding Problem: Resolved (12) Dehydration Problem: Resolved (13) Respiratory distress Problem: Resolved (14) Hypokalemia Problem: Acute (15) Diarrhea Problem: Acute Qualifiers: Diarrhea type: unspecified type Qualified Code(s): R19.7 - Diarrhea, unspecified Description of Stay: Date of admission: 01/22/17 Date of discharge: 01/28/17 diagnostics: ct urogram (01/23/17) 1. Numerous bilateral intrarenal calcifications noted. 2. Left-sided perinephric stranding, and focal ill-defined masslike finding of the lower pole of the left kidney. Differential diagnosis includes focal pyelonephritis, versus infiltrative renal mass. Clinical correlation is advised. Consider urology consultation. Consider short-term imaging follow-up in 1-3 months to see if this finding persists. 3. Small bladder calcification. 4. Urographic images demonstrate striated appearance of the renal pyramids in a "paintbrush" pattern. Consider medullary sponge kidney. 5. Somewhat thickened appearance of the sigmoid colonic segment as above. Correlate clinically for diverticulitis or colitis. Also consider possible colonic mass. Consider further evaluation of the colon as needed. 6. Nonspecific mild retroperitoneal lymphadenopathy adjacent to the left kidney. Could be reactive lymphadenopathy from underlying infection or inflammatory process versus metastatic disease. 7. Questionable filling defect versus artifact related to adjacent vascular structure within the right distal ureter. Consider further evaluation as clinically indicated. Description of stay: 01/22/17 patient was directed admitted from dr. morse's office for fever, chills and dyspnea with aggressive iv hydration. ct of chest was negative for pt. wbc 11.4. UA positive for blood and leukocytes. pt started on rocephin iv. 01/23/17 ct urogram significant for medullary sponge kidney and left sided peripnehric stranding - ? mass vs infection. iv antibiotics cont. 01/24/17 c/o "catching her breath". blood cultures positive for gram + cocci - currently on rocephin, levaquin and vanco. labs indicate iron def anemia - given venofer iv 500 mg x1. mri of the brain done - findings non-acute. 01/25/17 blood cultures growing staph aureus, final culture pending. on levaquin and vanco. 01/26/17 speech back to normal. both blood cultures growing staph epi. d/c levaquin due to resistance. vanco continued. 01/27/17 antibiotics continued 01/28/17 pt discharged with orders to follow up with dr taylor in 1-[address] belcher in 2-4 weeks. pt to receive iv vanco bid in the annex for 7 days. will also receive 1 dose of iv venofer 500 mg on 02/07/17. Procedures Performed: none Discharge Disposition: Home self care Disposition: Home self-care Condition: Good Discharge Activity: Activity as tolerated Discharge Diet: General/regular food Referrals: Radha Taylor DO [Primary Care Provider] - Problem Oriented Discharge Instructions to Patient/Family: Peripheral Intravenous Catheter Placement, Pediatric, Care After, Bacteremia Additional Patient Instructions (free text): Patient will need 1 dose of IV venofer 500 mg x1 in the annex on February 07 to complete treatment for iron deficiency anemia. IV Vancomycin 1.5 gm to be given in the annex at 7:30 am and 7:30 pm for 7 days. The first dose is tonight (01/28/17) at 7:30 pm. Be sure to drink enough water! Follow up with Dr. Taylor in 1-2 weeks SaturdayFebruary 08 10:15 am. Follow up with Dr. Belcher in 2-4 weeks February 15 at 9:30 am New medications: - Flonase 2 sprays each nare daily - Florastor 250 mg po bid - if not covered by insurance, any other the counter probiotic will work. Have your pharmacist help you pick one out. Prescriptions (Any new or edited meds): Fluticasone Propionate [Flonase] 2 spray NS DAILY #1 inhaler Iron Sucrose Complex [Venofer] 500 mg IV ONCE #1 vial Saccharomyces Boulardii [Florastor] 250 mg PO BID #60 capsule Vancomycin HCl [Vancomycin] 1.5 gm IV Q12H 7 Days Complete Home Medications List: Complete Home Medication List: Timolol Maleate [Timoptic 0.25% Ophthalmic Solution] 1 drop OP DAILY 01/03/17 prednisoLONE ACETATE [Pred Forte 1%] 1 drop LEFTEYE BID 01/03/17 Aspirin [Aspirin EC] 81 mg PO DAILY 01/04/17 HYDROcodone/ACETAMINOPHEN [[place] 5-325] 1 - 2 tab PO Q4H PRN #20 tab 01/04/17 Ascorbic Acid [Vitamin C] 500 mg PO DAILY 01/22/17 Cholecalciferol (Vitamin D3) [Vitamin D3] 2,000 unit PO DAILY 01/22/17 Cyanocobalamin (Vitamin B-12) [Vitamin B-12] 500 mcg PO DAILY 01/22/17 Ibuprofen [Motrin] 200 - 800 mg PO Q6H PRN 01/22/17 Vitamin E 200 unit PO DAILY 01/22/17 Fluticasone Propionate [Flonase] 2 spray NS DAILY #1 inhaler 01/28/17 Iron Sucrose Complex [Venofer] 500 mg IV ONCE #1 vial 01/28/17 Saccharomyces Boulardii [Florastor] 250 mg PO BID #60 capsule 01/28/17 Vancomycin HCl [Vancomycin] 1.5 gm IV Q12H 7 Days 01/28/17
--- NOTE | 2017-01-30 09:56 | PN ---
Subjective - Date and Time Seen Date: 01/23/17 Time: 08:15 Subjective Narrative: Patient seen and examined at bedside. No acute issues overnight. Awaiting CT urogram today. Objective - Review of Systems Generalized/Overall Review: Reports: Weakness, Fatigue EENTM: Reports: No Symptoms Reported Respiratory: Reports: No Symptoms Reported Cardiac: Reports: No Symptoms Reported Abdominal: Reports: No Symptoms Reported Genitourinary Symptoms: Reports: Hesitancy, Dysuria Musculoskeletal Complaints: Reports: Back Pain Neurological: Reports: No Symptoms Reported Skin: Reports: No Symptoms Reported Endocrine: Reports: No Symptoms Reported Misc: All systems neg except as marked - Vitals Vitals: Last Vital Signs Temp 36.6 C 01/28/17 10:14 Pulse 111 H 01/28/17 10:14 Resp 20 01/28/17 10:14 BP 145/89 01/28/17 10:14 Pulse Ox 96 01/28/17 10:14 - Exam Constitutional: Present: Alert, Oriented x3, Cooperative ENT Exam: Present: hearing grossly normal Respiratory: Present: lungs clear, normal breath sounds, no respiratory distress , no accessory muscle use Cardiovascular/Chest: Present: regular rate, rhythm Abdomen: Present: soft, nontender, nondistended Extremity: Present: normal range of motion, non-tender, normal inspection Skin Exam: Present: warm/dry, no cyanosis Neurologic: Present: no motor/sensory deficits, alert, normal mood/affect, oriented x 3 Appearance: Present: appropriate appearance, appropriate insight, neat, no memory impairment Eye contact: Present: cooperative, good eye contact, normal speech Thoughts: Present: normal thought pattern, no apparent hallucination Assessment/Plan Plan Narrative: Await completion of CT urogram. Continue IV antibiotics. Continue pain control PRN. Await input and recommendations from Dr. Alcala. - Problems/Diagnosis (1) Back pain Problem: Acute Qualifiers: Back pain location: back pain in unspecified location Chronicity: acute Back pain laterality: unspecified Qualified Code(s): M54.9 - Dorsalgia, unspecified
== END 2017-01-28 12:26 | disposition home or self-care (01) | DRG 690 ==
LOC: RAD 11:49 → MS 15:36 → OBSVTOIN 01-24 08:57
PROVIDERS: ADMIT Internal Medicine; ATTEND Internal Medicine
PROC: 4A033R1 Measurement of Arterial Saturation, Peripheral, Percutaneous Approach (ICD-10-PCS; principal; 2017-01-22)
DX: N12 Tubulo-interstitial nephritis, not specified as acute or chronic (principal); K51.90 Ulcerative colitis, unspecified, without complications; R78.81 Bacteremia; Q61.5 Medullary cystic kidney; E86.0 Dehydration; M54.9 Dorsalgia, unspecified; R06.00 Dyspnea, unspecified; D50.9 Iron deficiency anemia, unspecified; E87.6 Hypokalemia; Z79.82 Long term (current) use of aspirin; Z85.3 Personal history of malignant neoplasm of breast
CPT/HCPCS: 36415; 36600; 70553; 71010; 71020; 71275; 74178; 76700; 76770; 80048; 80053; 80202; 82150; 82272; 82365; 82565; 82746; 82803; 83540; 83550; 83605; 83690; 83880; 84484; 85007; 85025; 87040; 87077; 87086; 87186; 87493; 93005; 94640; G0378